=== PATIENT | male | born 1990 | race African-American/Black ===

== ENCOUNTER 2018-09-10 10:34 | Emergency (ER) | payer OTHER, SELFPAY ==
[~2018-09-10] VITALS: Ht 175.3 cm; Wt 75.0 kg
[2018-09-10] MEDS ORDERED: ONDANSETRON HCL 4MG/2ML INJ IV STA (11:00)
[2018-09-10] MEDS ORDERED: SODIUM CHLORIDE 0.9% 1,000 ML IV ONE (11:00)
[2018-09-10 12:40] VITALS: BP 127/79
[2018-09-10 13:22] LABS: CHLORIDE 110 mEq/L (98-107)
[2018-09-10 13:28] LABS: ETHANOL BLOOD 257 mg/dL
[2018-09-10 13:38] LABS: BASOPHILS % 0.8 % (0.0-2.0); EOSINOPHILS % 1.7 % (0.0-5.0); HEMATOCRIT. 47.5 % (42.0-52.0); HEMOGLOBIN. 15.6 g/dL (14.0-18.0); LYMPHOCYTES % 29.8 % (20.0-50.0); MEAN CORPUSCULAR HEMOGLOBIN 30.6 pg (28.0-32.0); MEAN CORPUSCULAR VOLUME 92.9 fL (80.0-94.0); NEUTROPHILS % 57.7 % (40.0-76.0); PLATELET 200 x1000/uL (130-400); RED BLOOD CELL COUNT 5.11 mill/uL (4.7-6.1); RED CELL DISTRIBUTION WIDTH 13.5 % (11.6-14.6)
== END 2018-09-10 13:35 | disposition left against medical advice (07) ==
LOC: ER 10:34
DX: F10.129 Alcohol abuse with intoxication, unspecified (principal); Y90.8 Blood alcohol level of 240 mg/100 ml or more; R45.1 Restlessness and agitation; Z78.1 Physical restraint status
CPT/HCPCS: 36415; 80053; 84484; 85025; 87186; 99283; J7030; Z7610; A4315